=== PATIENT | female | born 1960 | race African-American/Black ===

== ENCOUNTER 2018-04-29 11:42 | Emergency (ER) | payer BC, OTHER ==
[~2018-04-29] VITALS: Ht 154.9 cm; Wt 59.9 kg
[2018-04-29 11:46] VITALS: BP 124/74
--- NOTE | 2018-04-29 13:03 | PHYS DOC ---
Past Medical History Past Medical History: Hypertension, Hyperthyroid Past Surgical History: Hysterectomy, Other Additional Past Surgical Histo: thyroid surgery,HEMORRHOIDECTOMY Additional Information: 0.5 PPD Alcohol Use: None Drug Use: None Adult General Chief Complaint Chief Complaint: ANKLE PROBLEM HPI HPI Patient is a 57 year old female with a history of hypertension, hypothyroidism , who presents today requesting to be casted. Patient states she was seen by the PCP on Thursday this week was diagnosed with an ankle fracture which occurred after she fell down on April 21, 2018. Patient states they sent her to the ED to be casted. Review of Systems Review of Systems Constitutional: Denies fever or chills [] Musculoskeletal: Right ankle fracture, requesting to be casted Integument: Denies rash or skin lesions [] Neurologic: Denies headache, focal weakness or sensory changes [] All other systems were reviewed and found to be within normal limits, except as documented in this note. Allergies Allergies Allergies Coded Allergies Type Severity Reaction Last Updated Verified No Known Drug Allergies 07/16/13 No Physical Exam Physical Exam Constitutional: Well developed, well nourished, no acute distress, non-toxic appearance. [] Skin: Warm, dry, no erythema, no rash. [] Back: No tenderness, no CVA tenderness. [] Extremities: Right ankle with no obvious deformity. Small amount of soft tissue swelling noted on the right lateral ankle. Tenderness on the patient of the right lateral ankle. Full range of motion to the right ankle and foot. +2 right pedal pulse. Cap refill less than 2 seconds the right toes. Sensation intact to the right lower extremity. Neurologic: Alert and oriented X 3, normal motor function, normal sensory function, no focal deficits noted. [] Psychologic: Affect normal, judgement normal, mood normal. [] Current Patient Data Vital Signs Vital Signs Date Time Temp Pulse Resp B/P (MAP) Pulse Ox O2 Delivery O2 Flow Rate FiO2 04/29/18 11:46 98.0 88 20 124/74 (91) 100 Room Air 98.0 EKG EKG [] Radiology/Procedures Radiology/Procedures [] Course & Med Decision Making Course & Med Decision Making Pertinent Labs and Imaging studies reviewed. (See chart for details) This is a 57-year-old female patient presenting to the ED today requesting to be casted. She was diagnosed with a right ankle fracture yesterday. Patient was placed in a posterior leg splint by the ED RN, neurovascular exam done by me is intact. Ice elevation encouraged. Provided orthopedic doctor to follow up as an outpatient for casting. Petar Disclaimer Petar Disclaimer This electronic medical record was generated, in whole or in part, using a voice recognition dictation system. Departure Departure Impression: Primary Impression: Closed right ankle fracture Disposition: HOME, SELF-CARE Condition: STABLE Referrals: UNKNOWN PCP NAME (PCP) MARIA TERESA PELAEZ II, MD Call the doctor today and set up an appointment as soon as possible Patient Instructions: Ankle Pain Additional Instructions: You were put in a temporary splint in the emergency room. Contact the provided orthopedic doctor as soon as possible. They will follow up with the you and put you in a cast if needed. Problem Qualifiers Primary Impression: Closed right ankle fracture Encounter type: initial encounter Qualified Codes: S82.891A - Other fracture of right lower leg, initial encounter for closed fracture GAUTAM MALIK APRN Apr 29, 2018 13:03
== END 2018-04-29 13:20 | disposition home or self-care (01) ==
LOC: ER 11:42
DX: S82.891A Other fracture of right lower leg, initial encounter for closed fracture (principal); I10 Essential (primary) hypertension; E03.9 Hypothyroidism, unspecified; F17.200 Nicotine dependence, unspecified, uncomplicated; Z90.710 Acquired absence of both cervix and uterus; W19.XXXA Unspecified fall, initial encounter; Y93.89 Activity, other specified; Y92.89 Other specified places as the place of occurrence of the external cause; Y99.8 Other external cause status
CPT/HCPCS: 29515; 99284

== ENCOUNTER → 2020-04-30 | Outpatient (CLI) | payer BC ==
[~2020-04-30] MED LIST: CONTRAST GIVEN. MC PRN; IOHEXOL 350 MG/ML 100 ML VIAL. IV ONE
--- NOTE | 2020-04-30 10:49 | RAD ---
Examination: CT ANGIOGRAPHY CHEST History: soa s/p covid 19 / Spl. Instructions: omni 350 90ml / Comparison/Correlation: None Findings: Axial images of the chest were obtained following IV contrast according to pulmonary arteriography protocol. Sagittal and coronal reformatted images are provided. Maximum intensity projection images were provided. Pulmonary arterial vasculature is normal with no thromboembolic disease. No infiltrates or effusions. No enlarged thoracic lymph nodes. Tracheobronchial tree is overall unremarkable. Small density within the superior trachea at the thoracic inlet level which has density as of retained mucus is noted. Surgical clips are present at the left base of the neck of the thyroid gland region. Partially visualized upper abdomen is unremarkable. Thoracic aorta is not opacified according to aortography protocol but appears unremarkable. Bony structures are unremarkable for the patient's age. Impression: No PE or infiltrate. No suspicious process. PQRS Compliance Statement: One or more of the following individualized dose reduction techniques were utilized for this examination: 1. Automated exposure control 2. Adjustment of the mA and/or kV according to patient size 3. Use of iterative reconstruction technique Electronically signed by: Slava Ascencio MD (04/30/2020 10:46 AM) [id number]
== END ==
LOC: CT 09:47
PROVIDERS: ATTEND Nurse Practitioner
DX: R06.00 Dyspnea, unspecified (principal); R07.9 Chest pain, unspecified
CPT/HCPCS: 71275; Q9967